=== PATIENT | female | born 1995 | race Two or more races ===

== ENCOUNTER 2022-05-07 23:55 | Emergency (ER) | payer SELFPAY ==
[~2022-05-07] VITALS: Ht 157.5 cm; Wt 110.2 kg
[2022-05-07 23:56] VITALS: BP 133/66
== END 2022-05-08 03:18 | disposition left against medical advice (07) ==
LOC: M ED 23:55
DX: Z53.21 Procedure and treatment not carried out due to patient leaving prior to being seen by health care provider (principal)